=== PATIENT | male | born 1995 | race African-American/Black ===

== ENCOUNTER 2016-08-23 23:09 | Emergency (ER) | payer OTHER ==
[2016-08-23 23:28] VITALS: BP 126/60
== END 2016-08-24 00:14 | disposition home or self-care (01) ==
LOC: ED 23:09
DX: S01.511A Laceration without foreign body of lip, initial encounter (principal); W21.03XA Struck by baseball, initial encounter; Y93.64 Activity, baseball; Y92.39 Other specified sports and athletic area as the place of occurrence of the external cause; Y99.8 Other external cause status
CPT/HCPCS: 90715; J2001